=== PATIENT | female | born 1940 | race Two or more races ===

== ENCOUNTER 2018-01-26 17:43 | Inpatient (IN) | payer MEDICARE, MEDICAID ==
[~2018-01-26] VITALS: Ht 157.5 cm; Wt 77.1 kg
--- NOTE | 2018-01-26 17:54 | NUR ---
ARRIVED TO UNIT AT 1715 [facility], IS SAMI SPEAKING, NO COMPLAINTS OF PAIN AT THIS TIME, NO SIGNS OF DISTRESS NOTED, 141/81, 102 PULSE, 97% ON ROOM AIR, 99.2 ORAL TEMPERATURE,
[2018-01-26 18:07] VITALS: BP 141/81
[2018-01-26] MEDS ORDERED: Z GUARD REMEDY PASTE 57 GM TUBE TOP PRN (18:15)
[2018-01-26] MEDS ORDERED: FERR325T23 PO (18:15)
[2018-01-26] MEDS ORDERED: ATOR40TA PO (18:15)
[2018-01-26] MEDS ORDERED: MAGNESIUM HYDROXIDE 30 ML LIQUID UDC PO PRN (18:15)
[2018-01-26] MEDS ORDERED: ERGO500014 PO (18:15)
[2018-01-26] MEDS ORDERED: ACETAMINOPHEN 325 MG TABLET PO PRN ×2 (18:15→20:45)
[2018-01-26] MEDS ORDERED: OXYC-451 PO (18:15)
[2018-01-26] MEDS ORDERED: ASPI-612 PO (18:17)
[2018-01-26 20:26] VITALS: BP 122/79
[2018-01-26] MEDS ORDERED: Medication Not On Formulary EA (Oxycodone Hcl/Acetaminophen (Oxycodone-Apap 10-325 Mg Ta PO SCH (20:30)
[2018-01-26] MEDS ORDERED: ERGOCALCIFEROL 50,000 UNIT CAPSULE PO SCH (20:30)
[2018-01-26] MEDS ORDERED: BISACODYL 10 MG SUPP.RECT RC PRN (20:45)
[2018-01-26] MEDS ORDERED: DOCUSATE SODIUM 100 MG CAPSULE PO SCH (21:00)
[2018-01-26] MEDS: ATORVASTATIN 40 MG TABLET PO SCH (22:00)
[2018-01-26] MEDS: DOCUSATE SODIUM 100 MG CAPSULE PO SCH (22:00)
--- NOTE | 2018-01-27 01:27 | NUR ---
Received pt at the beginning of shift resting in bed. Russian speaking, able to make needs known. No acute distress noted. C/o pain on the left knee, PRN pain med given and was effective. Original dressing on the surgical site still in placed. Safety measures maintained. Call light and personal belongings within reach. Will continue to monitor.
[2018-01-27 05:00] VITALS: BP 139/65
--- NOTE | 2018-01-27 07:41 | NUR ---
Patient noted laying flat in bed, X-ray airplane technician noted in the room to take x-ray of chest, no complaints of pain at this time, no signs of distress, call light in reach, bed locked and in lowest position, x 2 bed rails, all needs met at this time
[2018-01-27 07:48] LABS: BASOPHILS % (AUTO) 0.4 % (0.0-2.0); EOSINOPHILS # (AUTO) 0.1 K/uL (0.0-0.7); EOSINOPHILS % (AUTO) 1.6 % (0.0-7.0); HEMATOCRIT 33.4 % (31.2-41.9); HEMOGLOBIN 11.5 g/dL (10.9-14.3); LYMPHOCYTES % (AUTO) 12.8 % (20.5-51.5); MEAN CORPUSCULAR HEMOGLOBIN 31.9 uug (24.7-32.8); MEAN CORPUSCULAR HGB CONC 35 g/dL (32.3-35.6); MEAN CORPUSCULAR VOLUME 92.4 fL (75.5-95.3); MONOCYTES # (AUTO) 0.5 K/uL (2.0-10.0); MONOCYTES % (AUTO) 6.3 % (0.0-11.0); NEUTROPHILS # (AUTO) 6.4 K/uL (1.8-8.9); NEUTROPHILS % (AUTO) 78.9 % (38.5-71.5); PLATELET COUNT (AUTO) 355 K/uL (179-408); RED BLOOD CELL COUNT(AUTO) 3.61 MIL/uL (3.63-4.92); WHITE BLOOD COUNT (AUTO) 8.2 K/uL (3.8-11.8)
[2018-01-27 07:56] VITALS: BP 139/82
[2018-01-27 07:57] LABS: IRON, SERUM 33 ug/dL (50-175)
[2018-01-27 08:05] LABS: THYROID STIMULATING HORMONE 0.524 mIU/mL (0.358-3.740)
[2018-01-27 08:25] LABS: ALANINE AMINOTRANSFERASE 150 U/L (14-59); ALKALINE PHOSPHATASE 229 U/L (50-136); ASPARTATE AMINOTRANSFERASE 185 U/L (15-37); BILIRUBIN,TOTAL 1.8 mg/dL (0.2-1.0); CARBON DIOXIDE 27 mmol/L (21-32); CHLORIDE 101 mmol/L (98-107); CHOLESTEROL 135 mg/dL (<200); CREATININE 0.6 mg/dL (0.6-1.3); GLUCOSE 115 mg/dL (74-106); HDL CHOLESTEROL 45 mg/dL (40-60); MAGNESIUM 2.1 mg/dL (1.8-2.4); PHOSPHOROUS 2.5 mg/dL (2.5-4.9); POTASSIUM 3.4 mmol/L (3.5-5.1); TOTAL PROTEIN, SERUM 7.5 g/dL (6.4-8.2); TRIGLYCERIDES 78 MG/DL (30-150); UREA NITROGEN, BLOOD 10 mg/dL (7-18)
[2018-01-27] MEDS: ASPIRIN 325 MG TABLET PO SCH (08:29)
[2018-01-27] MEDS: FERROUS SULFATE 325 MG TABEC PO SCH (08:29)
[2018-01-27] MEDS: FAMOTIDINE 20 MG TABLET PO SCH (08:29)
[2018-01-27] MEDS ORDERED: POTASSIUM CHLORIDE 20 MEQ TAB.PRT.SR PO ONE (12:00)
[2018-01-27] MEDS: OXYCODONE/APAP 5-325 MG TABLET PO PRN ×2 (12:30→18:31)
[2018-01-27] MEDS: ONDANSETRON HCL 4 MG TABLET PO PRN (18:31)
--- NOTE | 2018-01-27 19:53 | NUR ---
Patient heart rate noted at 120, MD kebede notified with orders for a stat ekg, results show sinus tachycardia. MD kebede notified, patient's heart rate rechecked and noted at 103, instruction to monitor in place, report passed on the assembler 1st shift nurse
[2018-01-27 20:44] VITALS: BP 108/71
[2018-01-27 20:49] VITALS: BP 108/71
[2018-01-27] MEDS ORDERED: LORAZEPAM 0.5 MG TABLET PO PRN (21:15)
[2018-01-27] MEDS: DOCUSATE SODIUM 100 MG CAPSULE PO SCH (21:20)
[2018-01-27] MEDS: ATORVASTATIN 40 MG TABLET PO SCH (21:20)
[2018-01-27] MEDS: MORPHINE SULFATE SR 15 MG TABLET.SA PO SCH (21:21)
[2018-01-27] MEDS ORDERED: MORPHINE SULFATE SR 15 MG TABLET.SA PO ONE (21:22)
--- NOTE | 2018-01-28 04:32 | NUR ---
awake alert and oriented. speaks Kyrgyz only. making needs known. patient with left knee arthroplasty. left knee dressing clean dry and intact. VSS. HR 113 afebrile. BP 108/71 On pain management. medicated with MS contin 15mg as ordered(new pain med) Tolerated well. No ill effects noted. Continent of bowel and bladder. slept well. No nausea or vomiting noted. kept comfortable. fall precautions maintained.siderails up for safety.
[2018-01-28 05:58] VITALS: BP 137/76
[2018-01-28 08:00] VITALS: BP 126/69
--- NOTE | 2018-01-28 08:00 | NUR ---
Patient awake, alert, verbally responsive, Faroese speaking, not in any form of acute distress. She denies any pain or discomfort at this time. Call light placed within reach. Attended to her needs.
[2018-01-28] MEDS: FAMOTIDINE 20 MG TABLET PO SCH (09:37)
[2018-01-28] MEDS: ASPIRIN 325 MG TABLET PO SCH (09:37)
[2018-01-28] MEDS: FERROUS SULFATE 325 MG TABEC PO SCH (09:37)
[2018-01-28] MEDS: MORPHINE SULFATE SR 15 MG TABLET.SA PO SCH ×2 (09:38→20:53)
--- NOTE | 2018-01-28 10:30 | NUR ---
Patient out of bed, ambulating with physical therapist with walker, not in distress. No complaints at this time.
[2018-01-28 16:00] VITALS: BP 121/70
[2018-01-28] MEDS: ONDANSETRON HCL 4 MG TABLET PO PRN (18:28)
[2018-01-28 20:06] VITALS: BP 105/45
[2018-01-28 20:20] VITALS: BP 126/79
[2018-01-28] MEDS: DOCUSATE SODIUM 100 MG CAPSULE PO SCH (20:52)
[2018-01-28] MEDS: ATORVASTATIN 40 MG TABLET PO SCH (20:52)
[2018-01-29 05:57] VITALS: BP 125/73
--- NOTE | 2018-01-29 06:23 | NUR ---
Report received from day shift nurse , Pt slept well throughout the night , Slovak speaking only , A & O x 4 , pt had pain , 8 /10 in left knee , received her pain medication of MS Contin per every 12 hours . Medication was effective as pt went to sleep.
--- NOTE | 2018-01-29 08:30 | NUR ---
Received patient, awake , alert x4. With tolerable left knee pain. Not in any form of distress. Will continue to monitor.
[2018-01-29 08:34] VITALS: BP 134/72
[2018-01-29] MEDS: MORPHINE SULFATE SR 15 MG TABLET.SA PO SCH ×2 (10:04→20:29)
[2018-01-29] MEDS: ERGOCALCIFEROL 50,000 UNIT CAPSULE PO SCH (10:04)
[2018-01-29] MEDS: ASPIRIN 325 MG TABLET PO SCH (10:04)
[2018-01-29] MEDS: FAMOTIDINE 20 MG TABLET PO SCH (10:04)
[2018-01-29] MEDS: FERROUS SULFATE 325 MG TABEC PO SCH (10:05)
[2018-01-29] MEDS: OXYCODONE/APAP 5-325 MG TABLET PO PRN (18:25)
--- NOTE | 2018-01-29 18:30 | NUR ---
Last BM- 01/27, offered stool softener PRN patient refused and claims she was not eating enough. Encouraged small frequent meals
--- NOTE | 2018-01-29 18:30 | NUR ---
Dressing changed per soling after shower. Surgical wound dry with javier, no discharges, healing well. Complained of knee pain rated as 9/10. PRn [place] given.
[2018-01-29 20:28] VITALS: BP 131/80
[2018-01-29] MEDS: DOCUSATE SODIUM 100 MG CAPSULE PO SCH (20:28)
[2018-01-29] MEDS: ATORVASTATIN 40 MG TABLET PO SCH (20:28)
--- NOTE | 2018-01-30 04:23 | NUR ---
quiet night. aaox4 ambulates to the BR with walker. voiding without difficulty. needs attended. kept comfortable. compliant with meds. no acute distress noted. fall precautions maintained.
[2018-01-30 05:14] VITALS: BP 129/67
[2018-01-30 08:00] VITALS: BP 127/73
--- NOTE | 2018-01-30 08:05 | NUR ---
Received patient awake, alert x4. With pain over left knee rated as 9/10. Not in any form of distress. Will continue to monitor
[2018-01-30] MEDS: ASPIRIN 325 MG TABLET PO SCH (09:13)
[2018-01-30] MEDS: FAMOTIDINE 20 MG TABLET PO SCH (09:13)
[2018-01-30] MEDS: FERROUS SULFATE 325 MG TABEC PO SCH (09:13)
[2018-01-30] MEDS: MORPHINE SULFATE SR 15 MG TABLET.SA PO SCH ×2 (09:14→21:14)
--- NOTE | 2018-01-30 09:30 | NUR ---
Routine pain medications given. Up with physical therapy tolerating well.
--- NOTE | 2018-01-30 13:45 | NUR ---
INTERDISCIPLINARY TEAM CONFERENCE
[2018-01-30 16:00] VITALS: BP 119/72
[2018-01-30] MEDS: OXYCODONE/APAP 5-325 MG TABLET PO PRN (18:38)
[2018-01-30 20:00] VITALS: BP 122/75
[2018-01-30] MEDS: DOCUSATE SODIUM 100 MG CAPSULE PO SCH (21:13)
[2018-01-30] MEDS: ATORVASTATIN 40 MG TABLET PO SCH (21:13)
--- NOTE | 2018-01-30 22:05 | NUR ---
Received pt sitting at bedside. Family was at bedside. AAO x3. Burmese speaking. No acute distress noted. Meds given per MD's order. Offered Dulcolax and MOM for constipation. Risks and benefits explained x3. Still refused. Pt stated that she has no appetite. Teaching provided and encouraged pt. Pt stated that she will try to eat more tomorrow. Safety measures maintained. Call light and personal belongings within reach. Will continue to monitor.
[2018-01-31 05:00] VITALS: BP 125/71
[2018-01-31] MEDS: BISACODYL 5 MG TABLET.DR PO PRN (08:58)
[2018-01-31] MEDS: FERROUS SULFATE 325 MG TABEC PO SCH (08:58)
[2018-01-31] MEDS: MORPHINE SULFATE SR 15 MG TABLET.SA PO SCH ×2 (08:58→20:01)
[2018-01-31] MEDS: ASPIRIN 325 MG TABLET PO SCH (08:59)
[2018-01-31] MEDS: FAMOTIDINE 20 MG TABLET PO SCH (08:59)
[2018-01-31 09:40] VITALS: BP 135/79
--- NOTE | 2018-01-31 09:54 | NUR ---
pt seen on rounding. vitals stable. aware of elevated LFT. will ask md for orders. pt given stool softeners. pt given pain made. aware of no bm for 3 days. will continue to monitor.
--- NOTE | 2018-01-31 19:30 | NUR ---
PT ALERT AND ORIENTED IN BED. NO DISTRESS NOTED. COMPLAINING OF PAIN, WILL GIVE PAIN MEDICATION. SAFETY MAINTAINED. CALL LIGHT WITHIN REACH. WILL CONTINUE TO MONITOR.
[2018-01-31 20:00] VITALS: BP 119/75
[2018-01-31] MEDS: DOCUSATE SODIUM 100 MG CAPSULE PO SCH (20:01)
[2018-01-31] MEDS: ATORVASTATIN 40 MG TABLET PO SCH (20:01)
[2018-01-31] MEDS: OXYCODONE/APAP 5-325 MG TABLET PO PRN (22:50)
[2018-02-01 05:45] VITALS: BP 123/79
--- NOTE | 2018-02-01 07:25 | NUR ---
PT RESTING IN BED. NO DISTRESS NOTED. COMPLIANT WITH MEDICATIONS AND NURSING CARE. SAFETY MAINTAINED. CALL LIGHT WITHIN REACH.
[2018-02-01 07:37] LABS: ALANINE AMINOTRANSFERASE 55 U/L (14-59); ALKALINE PHOSPHATASE 169 U/L (50-136); ASPARTATE AMINOTRANSFERASE 35 U/L (15-37); BASOPHILS # (AUTO) 0.1 K/uL (0.0-8.0); BASOPHILS % (AUTO) 0.9 % (0.0-2.0); BILIRUBIN,DIRECT 0.3 mg/dL (0.0-0.2); BILIRUBIN,TOTAL 0.8 mg/dL (0.2-1.0); CARBON DIOXIDE 28 mmol/L (21-32); CHLORIDE 98 mmol/L (98-107); CREATININE 0.6 mg/dL (0.6-1.3); EOSINOPHILS # (AUTO) 0.3 K/uL (0.0-0.7); EOSINOPHILS % (AUTO) 3.3 % (0.0-7.0); GLUCOSE 100 mg/dL (74-106); LYMPHOCYTES # (AUTO) 2.4 K/uL (20.0-40.0); LYMPHOCYTES % (AUTO) 31.3 % (20.5-51.5); MEAN CORPUSCULAR HEMOGLOBIN 31.9 uug (24.7-32.8); MEAN CORPUSCULAR HGB CONC 34 g/dL (32.3-35.6); MEAN CORPUSCULAR VOLUME 92.9 fL (75.5-95.3); MONOCYTES % (AUTO) 13.6 % (0.0-11.0); NEUTROPHILS # (AUTO) 3.9 K/uL (1.8-8.9); NEUTROPHILS % (AUTO) 50.9 % (38.5-71.5); PLATELET COUNT (AUTO) 402 K/uL (179-408); RED BLOOD CELL COUNT(AUTO) 3.44 MIL/uL (3.63-4.92); TOTAL PROTEIN, SERUM 7.7 g/dL (6.4-8.2); UREA NITROGEN, BLOOD 12 mg/dL (7-18); WHITE BLOOD COUNT (AUTO) 7.7 K/uL (3.8-11.8)
[2018-02-01] MEDS: ASPIRIN 325 MG TABLET PO SCH (08:13)
[2018-02-01] MEDS: BISACODYL 5 MG TABLET.DR PO PRN (08:13)
[2018-02-01] MEDS: FERROUS SULFATE 325 MG TABEC PO SCH (08:13)
[2018-02-01] MEDS: MORPHINE SULFATE SR 15 MG TABLET.SA PO SCH ×2 (08:13→20:28)
[2018-02-01] MEDS: FAMOTIDINE 20 MG TABLET PO SCH (08:13)
[2018-02-01 09:34] VITALS: BP 137/81
--- NOTE | 2018-02-01 18:00 | NUR ---
pt stable throughout the day. pt given stool softeners as needed. pt did not coplain of pain. meds given whole. no signs of infections on site. will continue to monitor.
--- NOTE | 2018-02-01 19:35 | NUR ---
RECEIVED PATIENT AWAKE IN BED WITH FAMILY AT BEDSIDE. PATIENT IS A/O X3. CITIZEN OF [place] SPEAKING ONLY, BUT ABLE TO MAKE SIMPLE NEEDS KNOWN. DRESSING NOTED TO LEFT KNEE, C/D/I. PATIENT C/O MILD PAIN. DENIES NEEDS FOR PAIN MEDICATION AT THIS TIME. VS WNL. CALL LIGHT IN REACH. ALL NEEDS ATTENDED. WILL CONTINUE TO MONITOR AND ASSESS.
[2018-02-01] MEDS: DOCUSATE SODIUM 100 MG CAPSULE PO SCH (20:27)
[2018-02-01] MEDS: ATORVASTATIN 40 MG TABLET PO SCH (20:28)
[2018-02-01 20:46] VITALS: BP 122/75
[2018-02-02 05:11] VITALS: BP 125/73
--- NOTE | 2018-02-02 06:09 | NUR ---
PATIENT AWAKE, RESTING IN BED. SLEPT WELL. DENIES PAIN. CALL LIGHT IN REACH. ALL NEEDS ATTENDED. WILL CONTINUE TO MONITOR AND ASSESS.
--- NOTE | 2018-02-02 07:54 | NUR ---
RECEIVED PATIENT AWAKE, ALERT AND ORIENTEDX4. CONTINUE THERAPY FOR S/P LEFT KNEE ARTHROPLASTY. NO COMPLAINT VOICED. CONTINUE ON PAIN MANAGEMENT. WILL CONTINUE MONITOR
[2018-02-02 08:00] VITALS: BP 123/75
[2018-02-02] MEDS: ASPIRIN 325 MG TABLET PO SCH (08:02)
[2018-02-02] MEDS: OXYCODONE/APAP 5-325 MG TABLET PO PRN (08:02)
[2018-02-02] MEDS: FAMOTIDINE 20 MG TABLET PO SCH (08:02)
[2018-02-02] MEDS: FERROUS SULFATE 325 MG TABEC PO SCH (08:02)
[2018-02-02] MEDS: MORPHINE SULFATE SR 15 MG TABLET.SA PO SCH ×2 (09:00→20:22)
[2018-02-02 16:31] VITALS: BP 120/75
[2018-02-02] MEDS: ATORVASTATIN 40 MG TABLET PO SCH (20:21)
[2018-02-02] MEDS: DOCUSATE SODIUM 100 MG CAPSULE PO SCH (20:21)
[2018-02-02 20:37] VITALS: BP 115/79
--- NOTE | 2018-02-02 21:44 | NUR ---
aaox4 ambulates to the BR with walker voiding well. no acute distress noted. needs attended. compliant with care. tolerated po meds well.pain meds given as scheduled. no acute distress noted. will monitor patient.
[2018-02-03 06:34] VITALS: BP 137/77
--- NOTE | 2018-02-03 06:56 | NUR ---
slept well. no distress noted. denies any pain nor any discomfort. will monitor patient. VSS.
[2018-02-03] MEDS: ASPIRIN 325 MG TABLET PO SCH (08:04)
[2018-02-03] MEDS: OXYCODONE/APAP 5-325 MG TABLET PO PRN (08:05)
[2018-02-03] MEDS: FERROUS SULFATE 325 MG TABEC PO SCH (08:05)
[2018-02-03] MEDS: FAMOTIDINE 20 MG TABLET PO SCH (08:05)
[2018-02-03] MEDS: BISACODYL 5 MG TABLET.DR PO PRN (08:07)
[2018-02-03 08:14] VITALS: BP 126/76
[2018-02-03] MEDS: MORPHINE SULFATE SR 15 MG TABLET.SA PO SCH ×2 (09:44→21:05)
--- NOTE | 2018-02-03 10:40 | NUR ---
Received patient awake, alert and orientedx3. swedish speaking. not in distress. Continue pain management given prior to therapy.will continue monitor
--- NOTE | 2018-02-03 13:47 | NUR ---
Patient went out for outside ortho surgeon consult around 1:47pm. came back around 3pm, javier removed. picture taken, for follow up consult 4-6 weeks. Encourage short shower for wound healing. will continue monitor
[2018-02-03 16:00] VITALS: BP 116/62
--- NOTE | 2018-02-03 19:45 | NUR ---
RECEIVED PATIENT AWAKE IN BED, WITH FAMILY AT BEDSIDE. PATIENT IS A/O X4. PARAGUAYAN SPEAKING, BUT ABLE TO MAKE SIMPLE NEEDS KNOWN. NO C/O PAIN AT THIS TIME. NO RESP. DISTRESS NOTED. DENIES SOB. NEUROVASCULAR CHECKS WNL. SENSATION PRESENT. DRESSING NOTED TO LEFT KNEE, C/D/I. CALL LIGHT IN REACH. ALL NEEDS ATTENDED. WILL CONTINUE TO MONITOR AND ASSESS.
[2018-02-03] MEDS: DOCUSATE SODIUM 100 MG CAPSULE PO SCH (21:02)
[2018-02-03] MEDS: ATORVASTATIN 40 MG TABLET PO SCH (21:03)
[2018-02-03 21:06] VITALS: BP 105/65
[2018-02-04 05:00] VITALS: BP 127/74
--- NOTE | 2018-02-04 07:22 | NUR ---
PATIENT AWAKE IN BED. SLEPT WELL. DENIES PAIN. CALL LIGHT IN REACH. ALL NEEDS ATTENDED. WILL CONTINUE TO MONITOR AND ASSESS.
--- NOTE | 2018-02-04 07:52 | NUR ---
Patient noted resting in bed with eyes closed, no facial cues of pain noted, no complaints of distress noted, call light in reach, bed locked and in lowest position, x [address], all needs met at this time
[2018-02-04] MEDS: ASPIRIN 325 MG TABLET PO SCH (08:46)
[2018-02-04] MEDS: FERROUS SULFATE 325 MG TABEC PO SCH (08:46)
[2018-02-04] MEDS: FAMOTIDINE 20 MG TABLET PO SCH (08:46)
[2018-02-04] MEDS: MORPHINE SULFATE SR 15 MG TABLET.SA PO SCH ×2 (08:47→20:39)
[2018-02-04] MEDS: OXYCODONE/APAP 5-325 MG TABLET PO PRN (08:47)
[2018-02-04 15:55] VITALS: BP 115/68
[2018-02-04 20:36] VITALS: BP 123/76
[2018-02-04] MEDS: DOCUSATE SODIUM 100 MG CAPSULE PO SCH (20:39)
[2018-02-04] MEDS: ATORVASTATIN 40 MG TABLET PO SCH (21:13)
--- NOTE | 2018-02-05 03:33 | NUR ---
Received report from day shift nurse . Pt is doing well , no signs of distress , Pt had pain in left knee , pain a 7 / 10 . Pt received her scheduled pain medication at 2030 and it was effective . Pt has no nausea , no shortness of breath . Pt has a clean and dry dressing over wound that had javier removed . No signs of infection. Pt is able to use the bathroom independently.
[2018-02-05 05:48] VITALS: BP 135/79
[2018-02-05 08:00] VITALS: BP 129/78
[2018-02-05] MEDS: FAMOTIDINE 20 MG TABLET PO SCH (08:40)
[2018-02-05] MEDS: MORPHINE SULFATE SR 15 MG TABLET.SA PO SCH (08:40)
[2018-02-05] MEDS: FERROUS SULFATE 325 MG TABEC PO SCH (08:40)
[2018-02-05] MEDS: ASPIRIN 325 MG TABLET PO SCH (08:41)
[2018-02-05] MEDS: ERGOCALCIFEROL 50,000 UNIT CAPSULE PO SCH (08:41)
== END 2018-02-05 13:30 | disposition home health service (06) | DRG 560 ==
PROVIDERS: ADMIT Physical Medicine & Rehabilitation Pain Medicine; ATTEND Physical Medicine & Rehabilitation Pain Medicine
DX: Z47.1 Aftercare following joint replacement surgery (principal); D68.59 Other primary thrombophilia; Z96.652 Presence of left artificial knee joint; D64.9 Anemia, unspecified; E66.9 Obesity, unspecified; Z68.31 Body mass index [BMI] 31.0-31.9, adult; E78.5 Hyperlipidemia, unspecified; E05.90 Thyrotoxicosis, unspecified without thyrotoxic crisis or storm; M06.9 Rheumatoid arthritis, unspecified; R01.1 Cardiac murmur, unspecified; R74.0 Nonspecific elevation of levels of transaminase and lactic acid dehydrogenase [LDH]
CPT/HCPCS: 36415; 71045; 83550; 83735; 84100; 84443; 85025; 92526; 92610; 93005; 93307; 97110; 97112; 97116; 97530; 97535; Q0162

== ENCOUNTER 2018-02-24 13:08 | Inpatient (IN) | payer MEDICARE, MEDICAID ==
[~2018-02-24] VITALS: Ht 154.9 cm; Wt 70.1 kg
[~2018-02-24 13:08] MED LIST: ASPI-612 PO; ATOR40TA PO; ERGO500014 PO; FERR325T23 PO; OXYC-451 PO
[2018-02-24] MEDS ORDERED: OXYC-128 PO (13:24)
[2018-02-24] MEDS ORDERED: FERR325T28 PO (13:24)
[2018-02-24] MEDS ORDERED: ASPI-869 PO (13:24)
[2018-02-24 14:06] LABS: BASOPHILS % (AUTO) 0.6 % (0.0-2.0); EOSINOPHILS % (AUTO) 0.3 % (0.0-7.0); HEMATOCRIT 32.2 % (31.2-41.9); HEMOGLOBIN 11.1 g/dL (10.9-14.3); LYMPHOCYTES # (AUTO) 1.5 K/uL (20.0-40.0); LYMPHOCYTES % (AUTO) 21.1 % (20.5-51.5); MEAN CORPUSCULAR HEMOGLOBIN 32.3 uug (24.7-32.8); MEAN CORPUSCULAR HGB CONC 35 g/dL (32.3-35.6); MEAN CORPUSCULAR VOLUME 93.5 fL (75.5-95.3); MONOCYTES # (AUTO) 0.5 K/uL (2.0-10.0); MONOCYTES % (AUTO) 6.7 % (0.0-11.0); NEUTROPHILS # (AUTO) 5.2 K/uL (1.8-8.9); NEUTROPHILS % (AUTO) 71.3 % (38.5-71.5); PLATELET COUNT (AUTO) 283 K/uL (179-408); RED BLOOD CELL COUNT(AUTO) 3.45 MIL/uL (3.63-4.92); WHITE BLOOD COUNT (AUTO) 7.3 K/uL (3.8-11.8)
[2018-02-24 14:25] LABS: ALANINE AMINOTRANSFERASE 20 U/L (14-59); ALKALINE PHOSPHATASE 104 U/L (50-136); ASPARTATE AMINOTRANSFERASE 21 U/L (15-37); BILIRUBIN,DIRECT 0.1 mg/dL (0.0-0.2); BILIRUBIN,TOTAL 0.5 mg/dL (0.2-1.0); CARBON DIOXIDE 24 mmol/L (21-32); CHLORIDE 101 mmol/L (98-107); CREATININE 0.5 mg/dL (0.6-1.3); GLUCOSE 110 mg/dL (74-106); LIPASE 77 U/L (73-393); POTASSIUM 3.7 mmol/L (3.5-5.1); TOTAL PROTEIN, SERUM 7.8 g/dL (6.4-8.2); UREA NITROGEN, BLOOD 8 mg/dL (7-18)
[2018-02-24] MEDS ORDERED: PANTOPRAZOLE SODIUM 40 MG VIAL IV ONE (14:30)
[2018-02-24] MEDS ORDERED: ONDANSETRON 4 MG/2 ML VIAL IV ONE (14:30)
[2018-02-24] MEDS ORDERED: ONDANSETRON 4 MG/2 ML VIAL ONE (15:05)
[2018-02-24] MEDS ORDERED: PANTOPRAZOLE SODIUM 40 MG VIAL ONE (15:05)
[2018-02-24 15:48] LABS: *BILIRUBIN,URIN NEGATIVE (NEGATIVE); *BLOOD, URINE Trace-lysed (NEGATIVE); *CLARITY,URINE CLEAR (CLEAR); *COLOR,URINE YELLOW (YELLOW); *KETONES,URINE NEGATIVE (NEGATIVE); *PROTEIN,URINE NEGATIVE (NEGATIVE); *UROBILINOGEN,URINE 0.2 E.U./dl (NORMAL); LEUKOCYTE ESTERASE ,URINE NEGATIVE (NEGATIVE); NITRITE, URINE NEGATIVE (NEGATIVE); PH,URINE 7.5 (5.0-8.0); UGLUCOSE NEGATIVE (NEGATIVE)
[2018-02-24 15:58] LABS: BACTERIA,URINE NONE SEEN /HPF (NONE SEEN); SQUAMOUS EPITHELIAL CELL,UR FEW /HPF (NONE SEEN); WBC,URINE 0-3 /HPF (0-3)
[2018-02-24] MEDS ORDERED: PIPERACILLIN SODIUM/TAZOBACTAM 3.375 G in IV DEXTROSE 5% 50 ML IV ONE (17:00)
[2018-02-24] MEDS ORDERED: PIPERACILLIN/TAZOBACTAM/D5W 50 ML IV ONE (17:03)
--- NOTE | 2018-02-24 18:34 | NUR ---
US TECH AT BEDSIDE.
--- NOTE | 2018-02-24 18:46 | NUR ---
PT TRANSFERED TO FLOOR IN STABLE CONDITION. PT ABDOMINAL PAIN 09/27. PT REFUSES PAIN MED AT THIS TIME.
--- NOTE | 2018-02-24 18:50 | NUR ---
RECEIVED PATIENT FOR ADMISSION 77 YEARS OLD FEMALE FROM ED WITH DX OF ABDOMINAL PAIN/CHOLECYSTITIS PATIENT IS ALERT AND ORIENTED MOSTLY CITIZEN OF [place] BUT UNDERSTANDS SOME CROATIAN ORIENTED TO ROOM AND FACILITY PROTOCOL ABLE TO AMBULATE BUT HAS OWN CANE FROM HOME ON ROOM AIR LEFT KNEE WITH OLD SURGICAL INCISION WITH DRY INCISION WITH SOME SCABS MADE COMFORTABLE WILL INFORM THE DOCTOR FOR ADMISSION ORDERS.
--- NOTE | 2018-02-24 19:00 | NUR ---
ADMISSION ENDORSED TO ONCOMING SHIFT PATIENT INSTRUCTED NOT TO EAT BECAUSE WE ARE STILL WAITING FOR THE DOCTOR TO INPUT ADMISSION ORDERS.
[2018-02-24 19:11] VITALS: BP 142/80
[2018-02-24] MEDS ORDERED: ONDANSETRON 4 MG/2 ML VIAL IV PRN (19:30)
[2018-02-24] MEDS ORDERED: ACETAMINOPHEN 650 MG SUPP.RECT RC PRN (19:30)
[2018-02-24 20:52] VITALS: BP 104/53
[2018-02-24] MEDS: POTASSIUM CHLORIDE 20 MEQ in IV D5/ 0.9% NACL 1,000 ML IV PRN (21:58)
--- NOTE | 2018-02-24 22:07 | NUR ---
Received patient at start of shift. In no apparent distress. Denies pain or discomfort. Abdominal inspection/auscultation done and patient denies any pain. Bowel sounds active x4. Albanian speaking but has family at bedside to interpret. Patient refused DVT pumps at this time. IV flushed and patent. IVF infusing at this time. Oriented patient to the unit and use of call light. Explained to patient she is NPO at this time due to her diagnosis. Patient and family verbalized understanding. Has old surgical scar from left knee, photo taken and placed in chart. Will continue to monitor.
[2018-02-25 04:00] VITALS: BP 98/44
--- NOTE | 2018-02-25 05:35 | NUR ---
Patient slept well. No adverse events. Still denies pain. Assisted to BR once by NAILER OPERATOR.
[2018-02-25 06:24] LABS: BASOPHILS % (AUTO) 0.7 % (0.0-2.0); EOSINOPHILS # (AUTO) 0.1 K/uL (0.0-0.7); EOSINOPHILS % (AUTO) 1.4 % (0.0-7.0); HEMATOCRIT 32.3 % (31.2-41.9); HEMOGLOBIN 10.7 g/dL (10.9-14.3); LYMPHOCYTES % (AUTO) 39.8 % (20.5-51.5); MEAN CORPUSCULAR HEMOGLOBIN 31.2 uug (24.7-32.8); MEAN CORPUSCULAR HGB CONC 33 g/dL (32.3-35.6); MEAN CORPUSCULAR VOLUME 93.9 fL (75.5-95.3); MONOCYTES # (AUTO) 0.7 K/uL (2.0-10.0); MONOCYTES % (AUTO) 13.3 % (0.0-11.0); NEUTROPHILS # (AUTO) 2.3 K/uL (1.8-8.9); NEUTROPHILS % (AUTO) 44.8 % (38.5-71.5); PLATELET COUNT (AUTO) 274 K/uL (179-408); RED BLOOD CELL COUNT(AUTO) 3.44 MIL/uL (3.63-4.92); WHITE BLOOD COUNT (AUTO) 5.2 K/uL (3.8-11.8)
[2018-02-25 06:39] LABS: ALANINE AMINOTRANSFERASE 15 U/L (14-59); ALKALINE PHOSPHATASE 99 U/L (50-136); ASPARTATE AMINOTRANSFERASE 17 U/L (15-37); BILIRUBIN,TOTAL 0.5 mg/dL (0.2-1.0); CARBON DIOXIDE 26 mmol/L (21-32); CHLORIDE 107 mmol/L (98-107); CREATININE 0.7 mg/dL (0.6-1.3); GLUCOSE 109 mg/dL (74-106); MAGNESIUM 2.2 mg/dL (1.8-2.4); PHOSPHOROUS 3.4 mg/dL (2.5-4.9); TOTAL PROTEIN, SERUM 7.2 g/dL (6.4-8.2); UREA NITROGEN, BLOOD 6 mg/dL (7-18)
[2018-02-25 06:42] LABS: THYROID STIMULATING HORMONE 0.548 mIU/mL (0.358-3.740)
--- NOTE | 2018-02-25 07:00 | NUR ---
RECEIVED PATIENT ON BED AWAKE, AAOX4, WELSH SPEAKING ONLY BUT CAN UNDERSTAND SOME ITALIAN. NO ACUTE DISTRESS NOTED. NPO. IV ACCESS ON THE LEFT AC #20 RUNNING D5NS +20 KCL MEQ @ 70 CC/HR INFUSING WELL. NO COMPLAINTS OF N/V NO COMPLAINTS OF ABD PAIN [place] THIS TIME. COMFORT MEASURES PROVIDED. CALL LIGHT WITHIN REACH. WILL CONTINUE TO MONITOR [place].
[2018-02-25] MEDS: PANTOPRAZOLE SODIUM 40 MG VIAL IV SCH (09:13)
--- NOTE | 2018-02-25 11:00 | NUR ---
FOR HIDA SCAN. PROCEDURE EXPLAINED TO PATIENT CONSENT SIGNED.
[2018-02-25 11:56] VITALS: BP 100/46
--- NOTE | 2018-02-25 12:53 | NUR ---
PATIENT TAKEN DOWN TO RADIOLOGY FOR HIDA SCAN, KEPT ON NPO, CONSENT SIGNED.
--- NOTE | 2018-02-25 15:00 | NUR ---
Patient back, in room, from HIDA scan procedure.
[2018-02-25] MEDS: POTASSIUM CHLORIDE 20 MEQ in IV D5/ 0.9% NACL 1,000 ML IV PRN (15:11)
--- NOTE | 2018-02-25 15:51 | NUR ---
Patient taken back down to Radiology for HIDA scan
[2018-02-25 16:00] VITALS: BP 108/45
--- NOTE | 2018-02-25 18:49 | NUR ---
Patient in room. stable condition. still NPO. IV access on the left AC #20 still intact and patent running D5NS + 20 meq KCl @ 70 cc/hr infusing well. No complaints of abd pain. no nausea/vomiting noted. HIDA scan done. all needs attended and anticipated. call light within reach. will continue to monitor closely.
--- NOTE | 2018-02-25 19:10 | NUR ---
RECEIVED PT AWAKE ON BED, AAOX4, NO SOB, DENIES ANY CHEST PAIN. FRISIAN SPEAKING, WITH SON AT BEDSIDE TO TRANSLATE. IV SITE ON LAC, PATENT AND INTACT. SAFETY MEASURES INITIATED, CALL PRIEST WITHIN REACH.
[2018-02-25 20:00] VITALS: BP 102/50
--- NOTE | 2018-02-25 21:00 | NUR ---
PHONE CALL MADE TO DR CHANTEL GAN, NOTIFIED ABOUT HIDA SCAN RESULTS.
[2018-02-26 05:05] VITALS: BP 94/45
[2018-02-26 06:24] LABS: BASOPHILS # (AUTO) 0.1 K/uL (0.0-8.0); BASOPHILS % (AUTO) 1.2 % (0.0-2.0); EOSINOPHILS # (AUTO) 0.2 K/uL (0.0-0.7); EOSINOPHILS % (AUTO) 3.8 % (0.0-7.0); HEMATOCRIT 32.7 % (31.2-41.9); HEMOGLOBIN 10.9 g/dL (10.9-14.3); LYMPHOCYTES # (AUTO) 2.1 K/uL (20.0-40.0); LYMPHOCYTES % (AUTO) 48.1 % (20.5-51.5); MEAN CORPUSCULAR HEMOGLOBIN 31.8 uug (24.7-32.8); MEAN CORPUSCULAR HGB CONC 33 g/dL (32.3-35.6); MEAN CORPUSCULAR VOLUME 95.3 fL (75.5-95.3); MONOCYTES # (AUTO) 0.6 K/uL (2.0-10.0); MONOCYTES % (AUTO) 12.6 % (0.0-11.0); NEUTROPHILS # (AUTO) 1.5 K/uL (1.8-8.9); NEUTROPHILS % (AUTO) 34.3 % (38.5-71.5); PLATELET COUNT (AUTO) 263 K/uL (179-408); RED BLOOD CELL COUNT(AUTO) 3.43 MIL/uL (3.63-4.92); WHITE BLOOD COUNT (AUTO) 4.4 K/uL (3.8-11.8)
[2018-02-26 06:34] LABS: ALANINE AMINOTRANSFERASE 17 U/L (14-59); ALKALINE PHOSPHATASE 90 U/L (50-136); ASPARTATE AMINOTRANSFERASE 23 U/L (15-37); BILIRUBIN,TOTAL 0.4 mg/dL (0.2-1.0); CARBON DIOXIDE 27 mmol/L (21-32); CHLORIDE 107 mmol/L (98-107); CREATININE 0.6 mg/dL (0.6-1.3); GLUCOSE 97 mg/dL (74-106); MAGNESIUM 2.1 mg/dL (1.8-2.4); PHOSPHOROUS 3.1 mg/dL (2.5-4.9); POTASSIUM 4.2 mmol/L (3.5-5.1); TOTAL PROTEIN, SERUM 7.1 g/dL (6.4-8.2); UREA NITROGEN, BLOOD 6 mg/dL (7-18)
--- NOTE | 2018-02-26 06:40 | NUR ---
PT SLEPT THROUGH OUT THE SHIFT, NO SIGNS OF RESPIRATORY DISTRESS, NO COMPLAINTS OF ABDOMINAL PAIN . IV SITE ON LAC, PATENT AND INTACT. NO EPISODE OF NAUSEA/VOMITING. SAFE ENVIRONMENT MAINTAINED AT ALL TIMES, ALL NEEDS MET AND ATTENDED, CALL PRIEST WITHIN REACH.
--- NOTE | 2018-02-26 07:30 | NUR ---
Awake, alert, oriented x 4, korean speaking. Denies pain. NPO re instructed and maintained. IVF infusing
[2018-02-26] MEDS: POTASSIUM CHLORIDE 20 MEQ in IV D5/ 0.9% NACL 1,000 ML IV PRN (09:04)
[2018-02-26] MEDS: PANTOPRAZOLE SODIUM 40 MG VIAL IV SCH (09:04)
--- NOTE | 2018-02-26 10:00 | NUR ---
Jacqueline THORNTON informed to call the son Rory regarding plan of surgery. NPO maintained
[2018-02-26 11:24] VITALS: BP 136/78
[2018-02-26 15:33] VITALS: BP 128/70
--- NOTE | 2018-02-26 16:00 | NUR ---
Patient has a shower.
--- NOTE | 2018-02-26 18:24 | NUR ---
Afebrile. Resting comfortably
--- NOTE | 2018-02-26 20:00 | NUR ---
Observed to be resting in bed with granddaughter at bedside. No s/s of acute distress noted at this time. All needs attended to. Pt made aware of plan of care.
[2018-02-26 20:32] VITALS: BP 114/54
--- NOTE | 2018-02-26 22:00 | NUR ---
Received orders from Dr. Sanchez to obtain consent for surgery - LAPAROSCOPIC VERSUS OPEN CHOLECYSTECTOMY POSSIBLE CHOLANGIOGRAM POSSIBLE LIVER BIOPSY. Pt and family made aware. Will keep pt NPO. Safe environment implemented at all times. IVF running as ordered. Call light within reach.
[2018-02-27] MEDS: POTASSIUM CHLORIDE 20 MEQ in IV D5/ 0.9% NACL 1,000 ML IV PRN ×2 (01:57→20:02)
[2018-02-27 04:31] VITALS: BP 120/51
--- NOTE | 2018-02-27 05:37 | NUR ---
Kept NPO. No s/s of acute distress. Consent form signed. Pt denies pain at this time. Safe environment implemented. Call light within reach.
[2018-02-27] MEDS ORDERED: BUPIVACAINE 0.25% 30 ML VIAL ONE (06:22)
[2018-02-27] MEDS ORDERED: LIDOCAINE 1%-EPI 1:100,000 20 ML VIAL ONE (06:22)
[2018-02-27 06:45] LABS: ALANINE AMINOTRANSFERASE 21 U/L (14-59); ALKALINE PHOSPHATASE 93 U/L (50-136); ASPARTATE AMINOTRANSFERASE 27 U/L (15-37); BILIRUBIN,TOTAL 0.5 mg/dL (0.2-1.0); CARBON DIOXIDE 27 mmol/L (21-32); CHLORIDE 106 mmol/L (98-107); CREATININE 0.7 mg/dL (0.6-1.3); GLUCOSE 100 mg/dL (74-106); POTASSIUM 3.8 mmol/L (3.5-5.1); TOTAL PROTEIN, SERUM 7.4 g/dL (6.4-8.2); UREA NITROGEN, BLOOD 6 mg/dL (7-18)
[2018-02-27 06:59] LABS: BASOPHILS # (AUTO) 0.1 K/uL (0.0-8.0); BASOPHILS % (AUTO) 1.3 % (0.0-2.0); EOSINOPHILS # (AUTO) 0.1 K/uL (0.0-0.7); EOSINOPHILS % (AUTO) 3.5 % (0.0-7.0); HEMATOCRIT 33.8 % (31.2-41.9); HEMOGLOBIN 11.4 g/dL (10.9-14.3); LYMPHOCYTES # (AUTO) 2.1 K/uL (20.0-40.0); MEAN CORPUSCULAR HEMOGLOBIN 31.9 uug (24.7-32.8); MEAN CORPUSCULAR HGB CONC 34 g/dL (32.3-35.6); MEAN CORPUSCULAR VOLUME 94.5 fL (75.5-95.3); MONOCYTES # (AUTO) 0.5 K/uL (2.0-10.0); MONOCYTES % (AUTO) 11.6 % (0.0-11.0); NEUTROPHILS # (AUTO) 1.4 K/uL (1.8-8.9); NEUTROPHILS % (AUTO) 33.6 % (38.5-71.5); PLATELET COUNT (AUTO) 299 K/uL (179-408); RED BLOOD CELL COUNT(AUTO) 3.58 MIL/uL (3.63-4.92); WHITE BLOOD COUNT (AUTO) 4.1 K/uL (3.8-11.8)
[2018-02-27] MEDS ORDERED: VANCOMYCIN HCL 500 MG VIAL ONE (07:19)
[2018-02-27] MEDS ORDERED: ALBUMIN HUMAN 5% 500 ML ONE (07:19)
[2018-02-27] MEDS ORDERED: VASOPRESSIN 20 UNIT/ML VIAL ONE (07:20)
[2018-02-27] MEDS ORDERED: DESFLURANE ANESTHESIA GAS 240 ML BOTTLE ONE (08:11)
[2018-02-27] MEDS ORDERED: ONDANSETRON 4 MG/2 ML VIAL IV PRN (09:00)
[2018-02-27] MEDS ORDERED: EPHEDRINE SULFATE 50 MG/ML AMPUL ONE (09:00)
[2018-02-27] MEDS ORDERED: FENTANYL CITRATE 100 MCG/2 ML AMPUL ONE (09:22)
--- NOTE | 2018-02-27 10:00 | NUR ---
pt seen on rounding. pt was delivered by surgical nurse. vitals stable. report received. pt ordered to have tele monitoring for 24 hours and strict I and O with head elevated. IV infusion rate increased from 70 cc to 90cc/hr. Skyler Estrada intact. no signs of leakage.
[2018-02-27] MEDS: PANTOPRAZOLE SODIUM 40 MG VIAL IV SCH (10:07)
[2018-02-27] MEDS: PIPERACILLIN/TAZOBACTAM/D5W 50 ML IV SCH ×2 (10:12→16:00)
[2018-02-27 11:13] VITALS: BP 110/54
[2018-02-27] MEDS: MORPHINE SULFATE 2 MG/1 ML DISP.SYRIN IV PRN ×4 (13:45→23:40)
--- NOTE | 2018-02-27 13:53 | NUR ---
pt given morphine 2mg for pain 10/10on lower abdomen. will reassess pain.
[2018-02-27 15:02] VITALS: BP 104/62
[2018-02-27 19:00] VITALS: BP 100/52
[2018-02-27] MEDS ORDERED: PHENYLEPHRINE 10 MG/1 ML VIAL MC ONE (20:04)
[2018-02-27] MEDS ORDERED: DEXAMETHASONE SOD PHOSPHATE 4 MG INJ IV ONE (20:04)
[2018-02-27] MEDS ORDERED: GLYCOPYRROLATE 0.2 MG/ML VIAL MC ONE (20:04)
[2018-02-27] MEDS ORDERED: ONDANSETRON 4 MG/2 ML VIAL IV ONE (20:04)
[2018-02-27] MEDS ORDERED: SEVOFLURANE 250 ML BOTTLE IH ONE (20:04)
[2018-02-27] MEDS ORDERED: ETOMIDATE 20 MG/10 ML VIAL MC ONE (20:04)
[2018-02-27] MEDS ORDERED: EPHEDRINE SULFATE 50 MG/ML AMPUL MC ONE (20:04)
[2018-02-27] MEDS ORDERED: IV NORMAL SALINE 1000 ML BAG IV ONE (20:04)
[2018-02-27] MEDS ORDERED: METRONIDAZOLE 500 MG/NS 100 ML PIGGYBACK IV ONE (20:04)
[2018-02-27] MEDS ORDERED: NEOSTIGMINE METHYLSULFATE 10 MG/10 ML VIAL IV ONE (20:04)
[2018-02-27] MEDS ORDERED: CEFAZOLIN 1 G VIAL MC ONE (20:04)
[2018-02-27] MEDS ORDERED: KETOROLAC TROMETHAMINE 30 MG INJ IM ONE (20:04)
[2018-02-27] MEDS ORDERED: ATROPINE SULFATE 1 MG/ML VIAL IV ONE (20:04)
[2018-02-28] VITALS: BP 102/53
[2018-02-28 04:00] VITALS: BP 116/76
[2018-02-28] MEDS: MORPHINE SULFATE 2 MG/1 ML DISP.SYRIN IV PRN (04:28)
[2018-02-28 06:16] LABS: BASOPHILS % (AUTO) 0.4 % (0.0-2.0); EOSINOPHILS % (AUTO) 0.4 % (0.0-7.0); HEMATOCRIT 29.9 % (31.2-41.9); HEMOGLOBIN 10.1 g/dL (10.9-14.3); LYMPHOCYTES # (AUTO) 2.4 K/uL (20.0-40.0); LYMPHOCYTES % (AUTO) 30.4 % (20.5-51.5); MEAN CORPUSCULAR HEMOGLOBIN 31.3 uug (24.7-32.8); MEAN CORPUSCULAR HGB CONC 34 g/dL (32.3-35.6); MEAN CORPUSCULAR VOLUME 92.9 fL (75.5-95.3); MONOCYTES # (AUTO) 0.8 K/uL (2.0-10.0); MONOCYTES % (AUTO) 10.3 % (0.0-11.0); NEUTROPHILS # (AUTO) 4.6 K/uL (1.8-8.9); NEUTROPHILS % (AUTO) 58.5 % (38.5-71.5); PLATELET COUNT (AUTO) 263 K/uL (179-408); RED BLOOD CELL COUNT(AUTO) 3.22 MIL/uL (3.63-4.92); WHITE BLOOD COUNT (AUTO) 7.9 K/uL (3.8-11.8)
[2018-02-28 06:31] LABS: ALANINE AMINOTRANSFERASE 29 U/L (14-59); ALKALINE PHOSPHATASE 72 U/L (50-136); AMYLASE 91 U/L (25-115); ASPARTATE AMINOTRANSFERASE 35 U/L (15-37); BILIRUBIN,TOTAL 0.5 mg/dL (0.2-1.0); CARBON DIOXIDE 23 mmol/L (21-32); CHLORIDE 107 mmol/L (98-107); CREATININE 0.6 mg/dL (0.6-1.3); GLUCOSE 110 mg/dL (74-106); LIPASE 115 U/L (73-393); POTASSIUM 3.6 mmol/L (3.5-5.1); TOTAL PROTEIN, SERUM 6.8 g/dL (6.4-8.2); UREA NITROGEN, BLOOD 6 mg/dL (7-18)
--- NOTE | 2018-02-28 08:00 | NUR ---
AWAKE ALERT COOPERATE WELL NO SOB OR PAIN DSG AND ABD INCISION CLEAN DRY LILIANA INPLACE OOB UP WITH ASSIST TO BRP VOIDING WELL RESTING WITH CALL PRIEST IN REACH
[2018-02-28] MEDS: PANTOPRAZOLE SODIUM 40 MG VIAL IV SCH (08:16)
[2018-02-28] MEDS: POTASSIUM CHLORIDE 20 MEQ in IV D5/ 0.9% NACL 1,000 ML IV PRN (08:16)
--- NOTE | 2018-02-28 10:00 | NUR ---
ASSIST UP IN CHAIR DOING WELL TERRELL CLEAR LIQ DIET THIS AM NO PAIN OR N/V CONTINUE IVF
[2018-02-28 11:35] VITALS: BP 123/62
--- NOTE | 2018-02-28 14:30 | NUR ---
IV WAS INFILTRATE CHANGE TO RT FA #[id number]
[2018-02-28 15:44] VITALS: BP 112/60
--- NOTE | 2018-02-28 17:00 | NUR ---
dr cast order ok to d/c to rehab unit today with order ,patient and family son was inform of d/c today VERBALIZES UNDERSTAND
--- NOTE | 2018-02-28 17:30 | NUR ---
STABLE HEMODYNAMIC STATUS ,PAIN UNDER CONTROL SAFETY MEASURE PROVIDED CALL LIGHT IN REACH
[2018-02-28] MEDS ORDERED: PANT40TA2 PO (18:55)
[2018-02-28 19:00] VITALS: BP 136/78
--- NOTE | 2018-02-28 20:05 | NUR ---
PT DISCHARGE AND TRANSFERED TO ARU. DISCHARGE PACKET AND INSTRUCTION GIVEN.PT UNDERSTAND. BELONGING LIST DONE. SON AT BEDSIDE. IV TAKEN OUT FOR THE PT. PT STABLE. PT GET TO ARU VIA WHEELCHAIR BY CHARGE NURSE.
[2018-03-01] MEDS ORDERED: PANTOPRAZOLE SODIUM 40 MG TABLET.DR PO SCH (07:00)
== END 2018-02-28 20:05 | DRG 418 ==
LOC: ER 13:10 → MED 18:24 → TELE 02-27 10:00
PROVIDERS: ADMIT Internal Medicine; ATTEND Internal Medicine
PROC: 0FB04ZX Excision of Liver, Percutaneous Endoscopic Approach, Diagnostic (ICD-10-PCS; 2018-02-27)
PROC: 0FT44ZZ Resection of Gallbladder, Percutaneous Endoscopic Approach (ICD-10-PCS; principal; 2018-02-27 07:11)
DX: K80.00 Calculus of gallbladder with acute cholecystitis without obstruction (principal); D68.59 Other primary thrombophilia; I50.30 Unspecified diastolic (congestive) heart failure; Z79.82 Long term (current) use of aspirin; E66.3 Overweight; Z68.29 Body mass index [BMI] 29.0-29.9, adult; K44.9 Diaphragmatic hernia without obstruction or gangrene; I08.3 Combined rheumatic disorders of mitral, aortic and tricuspid valves; Z96.652 Presence of left artificial knee joint; Z74.09 Other reduced mobility; E78.5 Hyperlipidemia, unspecified; E78.00 Pure hypercholesterolemia, unspecified; D53.9 Nutritional anemia, unspecified; E88.09 Other disorders of plasma-protein metabolism, not elsewhere classified; I25.10 Atherosclerotic heart disease of native coronary artery without angina pectoris; I11.0 Hypertensive heart disease with heart failure; Z79.899 Other long term (current) drug therapy; M06.9 Rheumatoid arthritis, unspecified; M19.90 Unspecified osteoarthritis, unspecified site
CPT/HCPCS: 36415; 70030-TC; 71045; 78445; 83690; 83735; 84100; 84443; 85025; 85730; 93005; A4663; A9537; C9113; J0461; J0690; J1100; J1885; J2270; J2370; J2405; J2543; J2710; J3010; J3370; J3480; J3490; J7030; J7042; P9045

== ENCOUNTER 2018-02-28 21:13 | Inpatient (IN) | payer MEDICARE, MEDICAID ==
[~2018-02-28] VITALS: Ht 154.9 cm; Wt 72.6 kg
[~2018-02-28 21:13] MED LIST changes: -ASPI-612 PO; +ASPI-869 PO; -ATOR40TA PO; -ERGO500014 PO; -FERR325T23 PO; +FERR325T28 PO; +OXYC-128 PO; -OXYC-451 PO; +PANT40TA2 PO
[2018-02-28] MEDS ORDERED: Z GUARD REMEDY PASTE 57 GM TUBE TOP PRN (21:30)
[2018-02-28 21:45] VITALS: BP 137/76
[2018-03-01 06:03] VITALS: BP 129/75
[2018-03-01] MEDS: PANTOPRAZOLE SODIUM 40 MG TABLET.DR PO SCH (06:05)
[2018-03-01] MEDS: ASPIRIN EC 325 MG TABLET.DR PO SCH (08:59)
[2018-03-01] MEDS: FERROUS SULFATE 325 MG TABEC PO SCH (08:59)
[2018-03-01] MEDS: OXYCODONE/APAP 5-325 MG TABLET PO PRN ×2 (08:59→12:01)
[2018-03-01 19:30] VITALS: BP 114/64
[2018-03-02 04:00] VITALS: BP 127/77
[2018-03-02] MEDS: PANTOPRAZOLE SODIUM 40 MG TABLET.DR PO SCH (06:47)
[2018-03-02] MEDS: FERROUS SULFATE 325 MG TABEC PO SCH (08:46)
[2018-03-02] MEDS: ASPIRIN EC 325 MG TABLET.DR PO SCH (08:46)
[2018-03-02 09:02] VITALS: BP 145/85
[2018-03-02 16:39] VITALS: BP 132/82
[2018-03-02 20:00] VITALS: BP 123/72
[2018-03-03] MEDS: PANTOPRAZOLE SODIUM 40 MG TABLET.DR PO SCH (06:19)
[2018-03-03 06:59] VITALS: BP 129/78
[2018-03-03] MEDS: ASPIRIN EC 325 MG TABLET.DR PO SCH (08:20)
[2018-03-03] MEDS: FERROUS SULFATE 325 MG TABEC PO SCH (08:20)
[2018-03-03 20:00] VITALS: BP 121/69
[2018-03-04] MEDS: PANTOPRAZOLE SODIUM 40 MG TABLET.DR PO SCH (06:02)
[2018-03-04 06:39] VITALS: BP 130/73
[2018-03-04 08:09] VITALS: BP 127/69
[2018-03-04] MEDS: FERROUS SULFATE 325 MG TABEC PO SCH (08:29)
[2018-03-04] MEDS: ASPIRIN EC 325 MG TABLET.DR PO SCH (08:29)
[2018-03-04 16:52] VITALS: BP 112/67
[2018-03-05 05:04] VITALS: BP 130/68
[2018-03-05] MEDS: PANTOPRAZOLE SODIUM 40 MG TABLET.DR PO SCH (06:14)
[2018-03-05] MEDS: FERROUS SULFATE 325 MG TABEC PO SCH (09:07)
[2018-03-05] MEDS: ASPIRIN EC 325 MG TABLET.DR PO SCH (09:07)
== END 2018-03-05 14:00 | disposition home health service (06) | DRG 950 ==
PROVIDERS: ADMIT Physical Medicine & Rehabilitation Pain Medicine; ATTEND Physical Medicine & Rehabilitation Pain Medicine
DX: Z48.815 Encounter for surgical aftercare following surgery on the digestive system (principal); E78.5 Hyperlipidemia, unspecified; I10 Essential (primary) hypertension; E66.9 Obesity, unspecified; Z68.30 Body mass index [BMI] 30.0-30.9, adult; I08.3 Combined rheumatic disorders of mitral, aortic and tricuspid valves; M06.9 Rheumatoid arthritis, unspecified; M19.90 Unspecified osteoarthritis, unspecified site; Z90.49 Acquired absence of other specified parts of digestive tract; Z96.652 Presence of left artificial knee joint; R53.1 Weakness
CPT/HCPCS: 92523; 92526; 92610; 97110; 97112; 97116; 97530; 97535